=== PATIENT | female | born 1945 ===

== ENCOUNTER 2022-09-23 06:00 | Outpatient (RCR) | payer MEDICARE, SELFPAY | END 2022-10-08 23:59 | disposition home or self-care (01) | LOC: MPT 06:00 | PROVIDERS: Visit Provider Physician Assistant | DX: M25.511 Pain in right shoulder (principal) | CPT/HCPCS: 97110; 97162 ==

== ENCOUNTER 2022-10-09 06:00 | Outpatient (RCR) | payer MEDICARE, SELFPAY | END 2022-11-08 23:59 | disposition home or self-care (01) | LOC: MPT 06:00 | PROVIDERS: Visit Provider Physician Assistant | DX: M25.511 Pain in right shoulder (principal) | CPT/HCPCS: 97110; 97140; G0283 ==

== ENCOUNTER 2022-11-09 06:00 | Outpatient (RCR) | payer MEDICARE, SELFPAY | END 2022-12-08 23:59 | disposition home or self-care (01) | LOC: MPT 06:00 | PROVIDERS: Visit Provider Physician Assistant | DX: M25.511 Pain in right shoulder (principal) | CPT/HCPCS: 97110; G0283 ==